=== PATIENT | female | born 2000 | race Caucasian/White ===

== ENCOUNTER 2019-11-17 18:45 | Emergency (ER) | payer OTHER ==
[~2019-11-17] VITALS: Ht 165.1 cm; Wt 56.2 kg
== END 2019-11-17 22:29 | disposition home or self-care (01) ==
LOC: ER 18:45
DX: J11.1 Influenza due to unidentified influenza virus with other respiratory manifestations (principal)

== ENCOUNTER 2024-05-09 14:08 | Emergency (ER) | payer OTHER ==
[~2024-05-09] VITALS: Ht 167.6 cm; Wt 56.7 kg
== END 2024-05-09 19:17 | disposition home or self-care (01) ==
LOC: ER 14:09
DX: H61.20 Impacted cerumen, unspecified ear (principal)